=== PATIENT | female | born 1990 | race Two or more races ===

== ENCOUNTER 2017-05-04 13:33 | Emergency (ER) | payer MEDICAID ==
[~2017-05-04] VITALS: Ht 157.5 cm; Wt 84.8 kg
[2017-05-04 15:26] LABS: Basophils # (auto) 0.2 uL; Eosinophils # (auto) 0.1 uL; Hemoglobin 8.8 g/dL (12.2-16.2); Mean Corpuscular Volume 66.3 fL (80.0-100.0); Neutrophils # (auto) 8.3 uL; Nucleated Red Blood Cells % 0.1 %; White Blood Cell 10.7 10^3/uL (4.4-10.8)
[2017-05-04 15:29] LABS: Basophils % (auto) 1.4 % (0.0-2.0); Eosinophils % (auto) 0.6 % (0.0-7.0); Hematocrit 29.1 % (36.0-46.0); Lymphocytes # (auto) 1.6 uL; Lymphocytes % (auto) 14.5 % (10.0-50.0); Mean Corpuscular Hgb Conc. 30.2 g/dL (32.0-36.0); Mean Platelet Volume 8.8 fL (6.9-10.8); Monocytes # (auto) 0.6 uL; Monocytes % (auto) 5.7 % (0.0-12.0); Neutrophils % (auto) 77.8 % (37.0-80.0); Platelet Count (auto) 247 10^3/uL (140-450); Red Cell Distribution Width 19.3 % (11.8-14.3)
[2017-05-04 15:50] LABS: Albumin 3.6 g/dL (3.4-5.0); BUN/Creatinine Ratio 14.7; Bilirubin, Total 0.2 mg/dL (0.2-1.0); Calcium 7.4 mg/dL (8.5-10.1); Potassium 3.8 mmol/L (3.5-5.1)
[2017-05-04 16:05] LABS: Urine Bilirubin Negative (Negative); Urine Blood 2+ /uL (Negative); Urine Color Yellow (Yellow); Urine Glucose Normal (Normal); Urine Ketone Negative (Negative); Urine Mucus FEW (None Seen); Urine Nitrite Negative (Negative); Urine RBC 16 /hpf (0 - 4); Urine Squamous Epithelial Cell FEW /hpf (<5); Urine Urobilinogen Normal (Negative); Urine pH 6.5 (5.0-8.0)
[2017-05-04 18:10] LABS: Platelet Estimate Adequate
[2017-05-04 18:11] LABS: Ovalocytes FEW; Schistocytes FEW; Tear Drop Cells FEW
[2017-05-04 18:12] LABS: Anisocytosis Slight; Hypochromia Marked; Microcytosis Marked
[2017-05-04 19:19] VITALS: BP 138/94
[2017-05-04] MEDS ORDERED: KETOROLAC TROMETH 60MG/2ML VIAL IM ONE (21:00)
== END 2017-05-04 23:45 | disposition home or self-care (01) ==
LOC: ER 13:33
DX: N83.209 Unspecified ovarian cyst, unspecified side (principal); N39.0 Urinary tract infection, site not specified; N85.00 Endometrial hyperplasia, unspecified; D64.9 Anemia, unspecified; F17.210 Nicotine dependence, cigarettes, uncomplicated
CPT/HCPCS: 36415; 76830; 76856; 80053; 81001; 81025; 85025; 96372